=== PATIENT | male | born 1965 | race Caucasian/White ===

== ENCOUNTER 2023-06-18 14:29 | Emergency (ER) | payer OTHER, SELFPAY ==
[2023-06-18 14:35] VITALS: BP 149/84; PULSE 87; RESP 16; TEMP 36.6; O2SAT 96; BMI 31.4
--- NOTE | 2023-06-18 14:50 | ED_ITS ---
HPI - General Adult General Chief complaint: Abdominal Pain Stated complaint: ABDOMINAL PAIN Time Seen by Provider: 06/18/23 14:48 Source: patient Mode of arrival: walk-in History of Present Illness HPI narrative: Patient is a 57-year-old male who presents to the emergency department for 2-day history of pain in the right lower quadrant. He denies any pain radiation. He has had no fevers, vomiting, diarrhea. He reports normal bowel movements. Normal urination. He has never had previous abdominal surgery. He recently establish care with a local PCP and had a wellness visit, it was recommended he follow-up for colonoscopy but this has not been scheduled yet. He has no other upper respiratory symptoms. No back or flank pain. No medications taken prior to arrival. Related Data Previous Rx's ?Medication ?Instructions ?Recorded naproxen sodium 550 mg tablet 550 mg PO BID PRN pain #10 tabs 06/18/23 Allergies Allergy/AdvReac Type Severity Reaction Status Date / Time No Known Drug Allergies Allergy Verified 06/18/23 14:38 Review of Systems ROS Constitutional Denies: fever or chills Ears, nose, mouth, and throat Denies: throat pain or nasal congestion Cardiovascular Denies: chest pain Respiratory Denies: shortness of breath or cough Gastrointestinal Denies: nausea or vomiting Musculoskeletal Denies: back pain or neck pain Integumentary/Breast Denies: rash Neurological Denies: headache Hematologic/Lymphatic Denies: easy bruising or easy bleeding Exam Narrative Exam Narrative: Gen.: Awake, alert, in no distress Head: Normocephalic, atraumatic ENT: Moist mucous membranes Respiratory: No respiratory distress, lungs clear bilaterally Cardio: Regular rate and rhythm Gastrointestinal: Abdomen is soft, nondistended and Tender to palpation over McBurney's point with no guarding or rebound, no CVA tenderness or flank tenderness Extremities: Moves extremities equally Psych: Normal mood and affect Neuro: No focal neuro deficit Skin: Warm, dry, intact Constitutional Vital Signs, click to edit/add: Last Vital Signs Temp 97.9 F 06/18/23 14:35 Pulse 71 06/18/23 16:33 Resp 18 06/18/23 16:33 BP 124/79 06/18/23 16:33 Pulse Ox 98 06/18/23 16:33 O2 Del Method Room Air 06/18/23 16:33 Course Vital Signs Vital signs: Vital Signs Temperature 97.9 F 06/18/23 14:35 Pulse Rate 87 06/18/23 14:35 Respiratory Rate 16 06/18/23 14:35 Blood Pressure 149/84 H 06/18/23 14:35 Pulse Oximetry 96 06/18/23 14:35 Oxygen Delivery Method Room Air 06/18/23 14:35 Temperature 97.9 F 06/18/23 14:35 Pulse Rate 71 06/18/23 16:33 Respiratory Rate 18 06/18/23 16:33 Blood Pressure 124/79 06/18/23 16:33 Pulse Oximetry 98 06/18/23 16:33 Oxygen Delivery Method Room Air 06/18/23 16:33 Medical Decision Making MDM Narrative Medical decision making narrative: Patient declined pain medication or nausea medication in the ER. Abdomen is soft and benign, vital signs are within normal limits. CT of the abdomen and pelvis with IV and oral contrast was performed showing the patient has no evidence of acute appendicitis. His lab studies are within normal limits, Patient reevaluated by Dr. Bach prior to discharge. He is treated for musculoskeletal abdominal wall pain with NSAIDs. Follow-up with PCP and return to the ER if symptoms change or worsen. Medical Records Medical records reviewed: Yes I reviewed the patient's medical records Lab Data Lab results reviewed: Yes I reviewed the patient's lab results Labs: Lab Results 06/18/23 06/18/23 Range/Units 14:55 16:20 WBC 9.4 (4.0-11.0) 10^3/uL RBC 4.82 (4.70-6.10) 10^6/uL Hgb 14.9 (14.0-18.0) g/dL Hct 43.0 (42.0-54.0) % MCV 89.2 (80.0-94.0) fL MCH 30.9 (25.9-34.0) pg MCHC 34.7 (29.9-35.2) g/dL RDW 12.5 (11.0-15.0) % Plt Count 205 (150-450) 10^3/uL MPV 10.8 (9.5-13.5) fL Neut % (Auto) 69.4 (43.0-75.0) % Lymph % (Auto) 21.2 (20.5-60.0) % [place] % (Auto) 6.8 (1.7-12.0) % Eos % (Auto) 1.4 (0.9-7.0) % Baso % (Auto) 0.9 (0.2-2.0) % Neut # (Auto) 6.5 (1.4-6.5) 10^3/uL Lymph # (Auto) 2.0 (1.2-3.8) 10^3/uL [place] # (Auto) 0.6 (0.3-0.8) 10^3/uL Eos # (Auto) 0.1 (0.0-0.7) 10^3/uL Baso # (Auto) 0.1 (0.0-0.1) 10^3/uL Abs Immat Gran (auto) 0.03 (0.00-0.03) 10^3/uL Imm/Tot Granulo (auto) 0.3 (0.0-0.5) % PT 11.0 (9.0-11.6) sec INR 1.04 Sodium 137 (136-145) mmol/L Potassium 3.8 (3.5-5.1) mmol/L Chloride 102 (98-107) mmol/L Carbon Dioxide 28.4 (21.0-32.0) mmol/L Anion Gap 10.4 BUN 12.0 (7.0-18.0) mg/dL Creatinine 1.16 (0.70-1.30) mg/dL Est GFR ( Amer) >60 (>=60) Est GFR (Non-Af Amer) >60 (>=60) BUN/Creatinine Ratio 10.3 Glucose 101 (74-106) mg/dL Lactate 1.0 (0.4-2.0) mmol/L Calcium 8.7 (8.5-10.1) mg/dL Total Bilirubin 1.1 H (0.2-1.0) mg/dL AST 16 (15-37) U/L ALT 25 (16-63) U/L Alkaline Phosphatase 112 (46-116) U/L Total Protein 7.2 (6.4-8.2) g/dL Albumin 3.8 (3.4-5.0) g/dL Globulin 3.4 g/dL Albumin/Globulin Ratio 1.1 Lipase 22.0 (16.0-77.0) U/L Urine Color Lt. yellow (YELLOW) Urine Clarity Clear (CLEAR) Urine pH 6.5 (5.0-9.0) Ur Specific [place] 1.010 (1.005-1.025) Urine Protein Negative (NEG/TRACE) mg/dL Urine Glucose (UA) Negative (NEGATIVE) mg/dL Urine Ketones Negative (NEGATIVE) mg/dL Urine Occult Blood Negative (NEGATIVE) Urine Nitrite Negative (NEGATIVE) Urine Bilirubin Negative (NEGATIVE) Urine Urobilinogen 0.2 (0.2-1.0) EU/dL Ur Leukocyte Esterase Negative (NEGATIVE) Imaging Data CT scan - abdomen: Attestation: I have reviewed the pertinent imaging results. Radiologist's impression: ITS Impressions Abdomen/Pelvis CT 06/18/23 16:32 IMPRESSION: 1. No acute abnormality of the abdomen and pelvis. 2. Normal appearance of the appendix. 3. Duodenal diverticulum present measuring up to 3.9 cm. 4. Nephrolithiasis. 5. Small fat-containing bilateral inguinal hernias. Electronically authenticated by: IBIS LION Date: 06/18/2023 16:54 Discharge Plan Discharge Stand Alone Forms: Portal Instructions Chief Complaint: Abdominal Pain Clinical Impression: Abdominal pain Patient Disposition: Home, Self-Care Time of Disposition Decision: 17:05 Condition: Good Prescriptions / Home Meds: New naproxen sodium 550 mg tablet 550 mg PO BID PRN (Reason: pain) Qty: 10 0RF Print Language: Guyanese Instructions: Acute Abdominal Pain (ED) Referrals: MARIIA COLLINS [Primary Care Provider] - 1 week Discharge Date/Time: 06/18/23 17:16
[2023-06-18 15:08] LABS: Basophils Absolute Auto 0.1 10^3/uL (0.0-0.1); Basophils Percent Auto 0.9 % (0.2-2.0); Eosinophils Absolute Auto 0.1 10^3/uL (0.0-0.7); Eosinophils Percent Auto 1.4 % (0.9-7.0); Hemoglobin 14.9 g/dL (14.0-18.0); Immature Granulocytes Abs Auto 0.03 10^3/uL (0.00-0.03); Immature Granulocytes Pct Auto 0.3 % (0.0-0.5); Lymphocytes Percent Auto 21.2 % (20.5-60.0); Mean Corpuscular HGB Conc 34.7 g/dL (29.9-35.2); Mean Corpuscular Hemoglobin 30.9 pg (25.9-34.0); Mean Corpuscular Volume 89.2 fL (80.0-94.0); Mean Platelet Volume 10.8 fL (9.5-13.5); Monocytes Absolute Auto 0.6 10^3/uL (0.3-0.8); Monocytes Percent Auto 6.8 % (1.7-12.0); Neutrophils Absolute Auto 6.5 10^3/uL (1.4-6.5); Neutrophils Percent Auto 69.4 % (43.0-75.0); Platelet Count 205 10^3/uL (150-450); Red Blood Count 4.82 10^6/uL (4.70-6.10); Red Cell Distribution Width 12.5 % (11.0-15.0); White Blood Count 9.4 10^3/uL (4.0-11.0)
[2023-06-18 15:25] LABS: INR 1.04
[2023-06-18 15:29] LABS: Alanine Aminotransferase 25 U/L (16-63); Albumin Globulin Ratio 1.1; Albumin Level 3.8 g/dL (3.4-5.0); Alkaline Phosphatase 112 U/L (46-116); Anion Gap 10.4; Aspartate Amino Transferase 16 U/L (15-37); BUN Creatinine Ratio 10.3; Bilirubin Total 1.1 mg/dL (0.2-1.0); Calcium 8.7 mg/dL (8.5-10.1); Carbon Dioxide 28.4 mmol/L (21.0-32.0); Chloride 102 mmol/L (98-107); Estimated GFR (African America >60 (>=60); Estimated GFR (Non-African Ame >60 (>=60); Globulin 3.4 g/dL; Glucose 101 mg/dL (74-106); Potassium 3.8 mmol/L (3.5-5.1); Sodium 137 mmol/L (136-145); Total Protein 7.2 g/dL (6.4-8.2)
[2023-06-18 16:32] LABS: Bilirubin Urine NEGATIVE (NEGATIVE); Blood Urine NEGATIVE (NEGATIVE); Clarity Urine CLEAR (CLEAR); Color Urine LT. YELLOW (YELLOW); Glucose Urine UA NEGATIVE (NEGATIVE); Ketones Urine NEGATIVE (NEGATIVE); Leukocyte Esterase Urine NEGATIVE (NEGATIVE); Nitrite Urine NEGATIVE (NEGATIVE); Protein Urine NEGATIVE (NEG/TRACE); Urobilinogen Urine 0.2 EU/dL (0.2-1.0); pH Urine 6.5 (5.0-9.0)
--- NOTE | 2023-06-18 16:32 | CT_ITS ---
The [address] [address] Patient Name: CECILLE BOWER MRN: [id number] date: 1965 Sex: M Assigned Patient Location: ER Current Patient Location: ER Accession/Order Number: [id number] Exam Date: 06/18/2023 16:20 Report Date: 06/18/2023 16:54 At the request of: PATRICIA SNYDER Procedure: CT abdomen pelvis w con EXAM: CT abdomen pelvis w con HISTORY: Right lower quadrant pain COMPARISON: None. TECHNIQUE: Axial CT images were obtained of the abdomen and pelvis with intravenous contrast. Multiplanar reconstructions were performed. ABDOMEN/PELVIS FINDINGS: Lower Chest: Unremarkable. Liver: Normal enhancement and contour. Biliary/Gallbladder: Unremarkable. Pancreas: Unremarkable. Spleen: Unremarkable. Adrenal Glands: Unremarkable. Kidneys: Nonobstructive calculi are present in the kidneys bilaterally. Gastrointestinal/Peritoneum: There is a duodenal diverticulum measuring 3.9 x 1.8 cm. The appendix is unremarkable. No free air or free fluid. Vascular: Unremarkable. Lymph Nodes: No enlarged lymph nodes by CT size criteria. Pelvic Organs: Unremarkable. Bladder: Unremarkable. Bones: No acute osseous abnormality. Mild multilevel degenerative changes are present in the visualized spine. There is a vertebral hemangioma in the L4 vertebral body. Soft tissues: Small fat-containing bilateral inguinal hernias are present. CT/CT abdomen pelvis w con IMPRESSION: 1. No acute abnormality of the abdomen and pelvis. 2. Normal appearance of the appendix. 3. Duodenal diverticulum present measuring up to 3.9 cm. 4. Nephrolithiasis. 5. Small fat-containing bilateral inguinal hernias. Electronically authenticated by: IBIS LION Date: 06/18/2023 16:54
[2023-06-18 16:33] VITALS: BP 124/79; PULSE 71; RESP 18; O2SAT 98
[2023-06-18 16:37] LABS: Urine Microscopic Indicated NO
== END 2023-06-18 17:16 | disposition home or self-care (01) ==
PROVIDERS: Physician Assistant; Emergency Provider Emergency Medicine; PCP Family Medicine
DX: R10.9 Unspecified abdominal pain (principal)
CPT/HCPCS: 36415; 74177; 80053; 81003; 83605; 83690; 85025; 85610; 99285; Q9966; Q9967